=== PATIENT | female | born 1950 | race Caucasian/White ===

== ENCOUNTER → 2016-11-03 | Outpatient (CLI) | payer BC, OTHER ==
[~2016-11-03] MED LIST: ATOR40TA21 PO; BUPR300T48 PO; FLUO20CA38 PO; METO-103 PO; SYN15 PO; TRAZ100T15 PO; VIT D
--- NOTE | 2016-11-03 15:51 | RADRPT ---
PROCEDURE: Left knee radiographs. CLINICAL INDICATION: Left knee pain. Postop. TECHNIQUE: Three views. Weight bearing. Frontal, lateral, and patellar view. COMPARISON: 06/02/2013. FINDINGS: There is no fracture or dislocation. The soft tissues are normal. 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 There is no lytic or blastic lesion. There is no joint effusion. IMPRESSION: 1. Satisfactory postoperative appearance of the left knee. RPTAT: QQ .Matthew Lyons MD, MD Date Time Electronically viewed and signed by .Matthew Lyons MD, on 11/03/2016 15:50 .R/
--- NOTE | 2016-11-03 15:53 | RADRPT ---
PROCEDURE: XR Left hip and pelvis. CLINICAL INDICATION: Left hip pain and pelvic pain. TECHNIQUE: 3 views. Frontal pelvis. Frontal and lateral left hip. COMPARISON: None. FINDINGS: There is no fracture or dislocation. The soft tissues are normal. There are degenerative changes of both hips with osteophytes and joint space narrowing. There is no lytic or blastic lesion. There are degenerative changes of the lower lumbar spine. IMPRESSION: 1. Degenerative changes of both hips. 2. Degenerative changes of the lower lumbar spine. 3. No acute abnormality. RPTAT: QQ .Matthew Lyons MD, MD Date Time Electronically viewed and signed by .Matthew Lyons MD, on 11/03/2016 15:52 .R/
== END | disposition home or self-care (01) ==
LOC: HKI 11:04
PROVIDERS: ATTEND Orthopaedic Surgery
DX: M25.552 Pain in left hip (principal); M54.16 Radiculopathy, lumbar region; M51.36 Other intervertebral disc degeneration, lumbar region; M16.12 Unilateral primary osteoarthritis, left hip; Z96.652 Presence of left artificial knee joint
CPT/HCPCS: 73502; 73562; G0463